=== PATIENT | female | born 1990 | race Caucasian/White ===

== ENCOUNTER 2016-04-03 17:15 | Emergency (ER) | payer OTHER ==
[2016-04-03 18:06] LABS: SPECIFIC GRAVITY 1.015 (1.001-1.030); URINE BILIRUBIN NEGATIVE (NEGATIVE); URINE BLOOD NEGATIVE (NEGATIVE); URINE GLUCOSE (UA) NEGATIVE (NEGATIVE); URINE LEUKOCYTE ESTERASE NEGATIVE (NEGATIVE); URINE NITRITE POSITIVE (NEGATIVE); URINE PROTEIN NEGATIVE (NEGATIVE); URINE UROBILINOGEN NORMAL (0-1 mg/dl)
[2016-04-03 18:09] LABS: HCG,QUALITATIVE URINE NEGATIVE
[2016-04-03 18:15] LABS: URINE APPEARANCE SL CLOUDY; URINE COLOR YELLOW
[2016-04-03 18:36] LABS: URINE RBC 0 /hpf
[2016-04-03] MEDS ORDERED: CEPHALEXIN 500 MG CAPSULE ONE (18:36)
[2016-04-03 18:37] LABS: URINE BACTERIA 4+
[2016-04-05 14:37] LABS: CHLAMYDIA BD Negative (Negative); N.GONORRHOEAE BD Negative (Negative); SOURCE Urine (())
== END 2016-04-03 18:46 | disposition home or self-care (01) ==
LOC: ED 17:15
DX: N39.0 Urinary tract infection, site not specified (principal); Z87.442 Personal history of urinary calculi

== ENCOUNTER 2016-05-06 18:54 | Emergency (ER) | payer OTHER ==
[2016-05-06 22:57] LABS: PH,URINE 6.5 (5.0-8.0); URINE BILIRUBIN NEGATIVE (NEGATIVE); URINE BLOOD NEGATIVE (NEGATIVE); URINE GLUCOSE (UA) NEGATIVE (NEGATIVE); URINE LEUKOCYTE ESTERASE NEGATIVE (NEGATIVE); URINE NITRITE NEGATIVE (NEGATIVE); URINE PROTEIN NEGATIVE (NEGATIVE); URINE UROBILINOGEN NORMAL (0-1 mg/dl)
[2016-05-06 23:01] LABS: ABSOLUTE NEUTROPHIL COUNT 3.6 K/mm3 (1.8-7.7); BASO # 0.1 K/mm3 (0.0-0.2); EOS # 0.6 (0.0-0.5); EOS % 8.3 % (0.9-2.9); HEMATOCRIT 35.7 % (37.0-47.0); HEMOGLOBIN 9.4 gm/l (12.0-16.0); IMM NEUT% 0.1 % (0-1); LYMPH # 2.2 (1.0-4.8); LYMPH % 30.6 % (15-45); MEAN CELL VOLUME 64.8 fl (81.0-99.0); MEAN CORPUSCULAR HEMOGLOBIN 17.1 pg (27.0-31.0); MEAN CORPUSCULAR HGB CONC 26.3 g/dl (33.0-37.0); MEAN PLATELET VOLUME 9.8 fl (7.4-10.4); MONO # 0.7 (0.0-0.8); MONO % 9.7 % (4-12); NEUT % 50.3 % (43-75); PLATELET COUNT 278 K/mm3 (130-400); RED CELL DISTRIBUTION WIDTH 17.3 % (11.5-14.5); URINE APPEARANCE CLEAR; URINE COLOR YELLOW
[2016-05-06 23:03] LABS: ALB/GLOB RATIO 1.5 (>1.0); ALBUMIN 4.8 gm/dL (3.5-5.7); CALCIUM 9.6 mg/dL (8.6-10.3)
[2016-05-06 23:32] LABS: ANISOCYTOSIS 2+; PLATELET ESTIMATE NORMAL (NORMAL)
[2016-05-07] MEDS ORDERED: HYDROCODONE/ACETAMINOPHEN 5/325MG TABLET ONE (00:58)
--- NOTE | 2016-05-07 06:58 | US ---
PELVIC LIMITED HISTORY: Left lower quadrant persistent pelvic pain. COMPARISONS: 08/16/2013. FINDINGS: Limited ultrasonography of the left ovary only was performed per request. The left ovary measures 5.1 x 2.4 x 2.9 cm. There is flow within the left ovary. A nonvascular hypoechoic area is observed within the left ovary measuring 2.0 x 2.0 x 2.3 cm. No significant free fluid is visualized. IMPRESSION: 1. Limited pelvic ultrasonography demonstrating a 2.3 cm nonvascular area within the left ovary which may reflect a complicated or hemorrhagic cyst. No significant free fluid is visualized. The findings were called to the emergency room at 0042 hours, 05/07/2016, by [facility].
== END 2016-05-07 01:42 | disposition home or self-care (01) ==
LOC: ED 18:54
DX: R10.32 Left lower quadrant pain (principal); I47.1 Supraventricular tachycardia; N83.209 Unspecified ovarian cyst, unspecified side; Z87.442 Personal history of urinary calculi; Z87.898 Personal history of other specified conditions
CPT/HCPCS: 83690; 84703; 85025; 80053; 81003; 76857; 99284; 99283; A9270